=== PATIENT | male | born 1965 | race Caucasian/White ===

== ENCOUNTER 2020-03-28 08:25 | Outpatient (CLI) | payer MEDICARE, OTHER, SELFPAY ==
--- NOTE | 2020-03-28 08:38 | XR_ITS ---
WS: [id number] EXAM: RIGHT HAND: 3 VIEWS DATE OF EXAMINATION: 03/28/2020, 0847 hours COMPARISON: Right wrist examination from 11/02/2018. HISTORY: Patient is 54 years old with hand pain after falling off the lawnmower. FINDINGS: Bone density is normal in appearance. There are minimal changes of arthritis in the wrist. No fractur e or dislocation is seen. No soft tissue abnormality demonstrated. XR/XR hand RT min 3V* [id number] IMPRESSION: No acute bony abnormality.
== END 2020-03-28 08:26 | disposition home or self-care (01) ==
LOC: RAD 08:34
PROVIDERS: PCP Family Medicine; Visit Provider Nurse Practitioner Family
DX: M79.641 Pain in right hand (principal)
CPT/HCPCS: 73130

== ENCOUNTER 2021-03-29 11:17 | Emergency (ER) | payer MEDICARE, SELFPAY ==
[2021-03-29] VITALS (8 sets, daily range): BP systolic 138–168; BP diastolic 90–116; PULSE 78–88; RESP 14–26; TEMP 37.1; O2SAT 96–99; BMI 37.3
--- NOTE | 2021-03-29 12:46 | ECG_ITS ---
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 Measurements Intervals [place] Rate: 84 P: 42 [place]: 167 QRS: 27 QRSD: 106 T: 24 QT: 387 QTc: 459 Interpretive Statements SINUS RHYTHM No previous ECG available for comparison Electronically Signed On 03-29-2021 18:27:56 CDT by Sana Gutierrez M.D. [id number] f
--- NOTE | 2021-03-29 12:47 | W.ED.BACK ---
HPI - Back Pain/Injury General: Chief Complaint: Back Pain/Injury Stated Complaint: HTN: SENT BY PCP Time Seen by Provider: 03/29/21 12:30 Source: patient Mode of arrival: ambulatory Limitations: no limitations History of Present Illness: HPI Narrative: 55-year-old male presents to the ER today after going to his PCP for medication refills and having an elevated blood pressure. Patient reports at the doctor's office it was ~180/115. Patient reports he felt fine and had no other symptoms associated such as a headache or blurry vision. Patient drove himself to the appointment with no problem. Patient reports a long standing history of hypertension which has been difficult to control. He is currently taking lisinopril and metoprolol but has been out of his metoprolol for over a week now. Patient was seeing his primary care today for a refill on the metoprolol. Patient does have chronic back issues and is waiting for a stimulator and takes meloxicam and a muscle relaxer for pain currently. Patient was sent from the primary care office due to the elevated blood pressure and told he was stroke level high. Pertinent past history: prior back pain (Chronic) Associated symptoms: Reports other (Elevated blood pressure); Deny abdominal pain, chills, fever(s), nausea or vomiting Review of Systems Const: Denies: fever(s) or chills Eyes: Denies: change in vision or blurry vision ENMT: Denies: throat pain, nasal discharge or nasal congestion Card: Denies: chest pain, palpitations, edema, dyspnea on exertion or orthopnea Resp: Denies: dyspnea, productive cough, non-productive cough or wheezing GI: Denies: abdominal pain, nausea, vomiting, diarrhea or constipation Musc: Reports: back pain (Chronic and unchanged) Skin/Breast: Denies: rash Neuro: Denies: headache(s) or dizziness Physical Exam Const: COMMON NORMALS: no acute distress, patient oriented x3 and no limitations GENERAL APPEARANCE: cooperative; not in distress NUTRITIONAL APPEARANCE: obese HENMT: COMMON NORMALS: normocephalic HEAD & SCALP: normocephalic Lymph: LYMPHATIC: no lymphadenopathy noted Chest: COMMONS NORMALS: normal inspection of the chest and normal palpation of entire chest wall Resp: COMMON NORMALS: normal respiratory effort, No retractions and clear to auscultation bilaterally AUSCULTATION: clear to auscultation bilaterally, no rales, no rhonchi and no wheezes Cardio: COMMON NORMALS: regular rate, regular rhythm, No murmurs present (Cardio) and Peripheral pulses 2+ throughout RATE: regular rate and not tachycardic RHYTHM: regular rhythm PERIPHERAL PULSES: Peripheral pulses 2+ throughout GI: COMMON NORMALS: Normal to inspection, nondistended, normoactive bowel sounds present, Soft to palpation and non-tender PALPATION: Yes Soft to palpation Back/Pelvis: COMMON NORMALS: thoracic and lumbar spine normal to inspection Extremity: COMMON NORMALS: normal to inspection and full ROM Neuro: COMMON NORMALS: patient oriented x3 Psych: COMMON NORMALS: mental status grossly normal and Normal thought process present THOUGHT PROCESS: Normal thought process present Skin: COMMON NORMALS: no rashes or lesions noted GENERAL SKIN EXAM: no rashes or lesions noted Course ED course: On monitor there is noted to be a possible inverted T wave in lead II. Patient has no chest pain and no other symptoms at this time. We will get an EKG and lab work given this finding. Patient has been out of his blood pressure medication metoprolol for 1 week now. Patient runs on the high side he reports, never getting below 140 systolic. Patient currently only takes lisinopril and metoprolol and denies having tried very many other medications. Denies any kidney problems. Reevaluation(s): Reevaluation #1: Patient resting comfortably in room. Blood pressure most recent reading is 138/90. Patient has no symptoms at this time Time: 13:46 Vital Signs: Vital signs: Vital Signs Temperature 98.7 F 03/29/21 11:59 Pulse Rate 78 03/29/21 13:15 Respiratory Rate 20 H 03/29/21 13:15 Blood Pressure 142/99 03/29/21 13:15 Pulse Oximetry 97 03/29/21 13:15 MDM - Back Pain/Injury MDM Narrative: Medical decision making narrative: Patient presented to the ER for elevated blood pressure while at his PCPs office. Patient had not been taking one of his blood pressure medicines for the last week due to being out of it. Patient had no symptoms upon presentation to the ER or his clinic this morning that are worrisome. Patient's physical exam was unremarkable. We did do an EKG and troponin given on the monitor it appeared there was a possible inverted T waves. EKG did not show 1 however. Patient has no symptoms at this time and is feeling good. We will refill his metoprolol and continue home meds. His last blood pressure in the ER was 138/90 which is where he runs chronically he reports. Patient will follow up with his PCP in 1 to 2 weeks. Return to the ER with any new or worsening symptoms. Lab Data: Attestation: I reviewed the patient's lab results. Lab results narrative: White blood count is low, this was discussed with patient and he will follow-up with his PCP regarding this. All other lab work is good today Labs: Lab Results 03/29/21 03/29/21 03/29/21 Range/Units 12:51 12:51 12:51 WBC 2.9 L (4.0-10.0) 10^3/ uL RBC 5.25 (4.1-5.3) 10^6/u L Hgb 16.0 (11.7-16.6) g/dL Hct 47.0 (42.0-52.0) % MCV 89.5 (80-94) fl MCH 30.5 (28.0-34.0) pg MCHC 34.0 (30.0-36.0) g/dL RDW 13.6 (12.1-15.1) % Plt Count 131 (130-400) 10^3/c mm MPV 10.2 (7.4-10.4) fL Neut % (Auto) 59.3 % Lymph % (Auto) 26.6 % [place] % (Auto) 12.8 % Eos % (Auto) 0.3 % Baso % (Auto) 0.7 % Neut # (Auto) 1.71 L (1.8-7.7) 10^3/u L Lymph # (Auto) 0.8 (0.8-4.8) 10^3/u L [place] # (Auto) 0.4 (0.2-0.9) 10^3/u L Eos # (Auto) 0.0 (0.0-0.8) 10^3/u L Baso # (Auto) 0.0 (0.0-0.1) 10^3/u L Nucleated RBC % (a uto) 0 % Nucleated RBCs # 0.0 /100WBC Sodium 141 (136-145) mmol/L Chloride 104 (98-107) mmol/L Carbon Dioxide 24 (22-29) mmol/L BUN 14 (6-20) mg/dL Creatinine 0.8 (0.7-1.2) mg/dL GFR Calculation 100.4 (90-130) mL/min Glucose 88 (65-115) mg/dL Calculated Osmolal ity 292 (285-295) mOsm/k g Calcium 9.0 (8.5-10.5) mg/dL Total Bilirubin 0.3 (0.15-1.2) mg/dL AST 22 (0-40) U/L ALT 22 (0-41) U/L Alkaline Phosphata se 73 (40-130) IU/L Troponin T Gen 5 n g/L 7 (0-15) ng/L Total Protein 6.7 (6.6-8.7) g/dL Albumin 4.5 (3.5-5.2) g/dL Globulin 2.2 (1.3-4.6) g/dL EKG Data^: EKG 1: EKG interpretation date: 03/29/21 EKG interpretation time: 13:52 Other EKG comments: EKG normal Critical Care Time Critical Care Time: Critical Care Time: No Discharge Plan Discharge Patient Disposition: Home Clinical Impression: Hypertension Qualifiers: Hypertension type: unspecified Qualified Code(s): I10 - Essential (primary) hypertension Chronic back pain Qualifiers: Back pain location: low back pain Back pain laterality: unspecified Sciatica presence: without sciatica Qualified Code(s): M54.5 - Low back pain Condition: Stable Prescriptions: New metoprolol succinate 50 mg tablet extended release 24 hr 50 mg PO DAILY Qty: 30 RF: 0 No Action Zyrtec 10 mg Tablet 10 mg PO DAILY PRN (Reason: Allergy Symptoms) RF: 0 tizanidine 4 mg tablet 4 mg PO BEDTIME RF: 0 metoprolol succinate 50 mg tablet extended release 24 hr 50 mg PO DAILY RF: 0 meloxicam 15 mg tablet 15 mg PO DAILY RF: 0 lisinopril 10 mg tablet 10 mg PO BID RF: 0 Discharge Orders: Discharge ED (Routine); Ordered 03/29/21 Ordered By: Jamila Petersen Referrals: Caryl Balderas NP [Primary Care Provider] - Discharge Diet: Usual diet Discharge Activity: Resume usual activity Patient Instructions: Hypertension (ED), Opioid Safety Activity Restrictions/Additional Instructions: Continue home medications. Metoprolol ER 50 mg was refilled in the ER today. Follow-up with PCP in the next 1 to 2 weeks. Check blood pressure at home occasionally and record. Return to the ER with any new or worsening symptoms. Coding Level of Care Code ED Juvenile Probation Officer for Rosemarie Fwd Exam Comprehensive
[2021-03-29 12:59] LABS: Basophils % 0.7 %; Eosinophils % 0.3 %; Lymphocytes # 0.8 10^3/uL (0.8-4.8); Lymphocytes % 26.6 %; Mean Corpuscular Hemoglobin 30.5 pg (28.0-34.0); Mean Corpuscular Volume 89.5 fl (80-94); Mean Platelet Volume 10.2 fL (7.4-10.4); Monocytes # 0.4 10^3/uL (0.2-0.9); Monocytes % 12.8 %; Neutrophils # 1.71 10^3/uL (1.8-7.7); Neutrophils % 59.3 %; Nucleated Red Blood Cells % 0 %; Platelet Count 131 10^3/cmm (130-400); Red Blood Count 5.25 10^6/uL (4.1-5.3); Red Cell Distribution Width 13.6 % (12.1-15.1); White Blood Count 2.9 10^3/uL (4.0-10.0)
[2021-03-29] MEDS: metoprolol succinate ER (24 HR) 50 mg Tablet PO (13:21)
[2021-03-29 13:27] LABS: Alanine Aminotransferase 22 U/L (0-41); Albumin Level 4.5 g/dL (3.5-5.2); Alkaline Phosphatase 73 IU/L (40-130); Aspartate Amino Transferase 22 U/L (0-40); Blood Urea Nitrogen 14 mg/dL (6-20); Carbon Dioxide 24 mmol/L (22-29); Chloride 104 mmol/L (98-107); Globulin 2.2 g/dL (1.3-4.6); Glomerular Filtration Rate 100.4 mL/min (90-130); Glucose 88 mg/dL (65-115); Osmolality Calculated 292 mOsm/kg (285-295); Sodium 141 mmol/L (136-145); Total Bilirubin 0.3 mg/dL (0.15-1.2); Total Protein 6.7 g/dL (6.6-8.7)
[2021-03-29 13:28] LABS: Troponin T (5th) Once 7 ng/L (0-15)
[2021-03-29 13:48] LABS: Anion Gap 17.1 (5-19); Potassium 4.1 mmol/L (3.5-5.1)
== END 2021-03-29 13:58 | disposition home or self-care (01) ==
PROVIDERS: Emergency Provider Physician Assistant; PCP Nurse Practitioner Family
DX: I10 Essential (primary) hypertension (principal); G89.29 Other chronic pain; M54.5 Low back pain
CPT/HCPCS: 80053; 84484; 85025; 93005; 99284

== ENCOUNTER → 2021-04-03 10:33 | Outpatient (BNVA) | payer MEDICARE, SELFPAY | PROVIDERS: PCP Nurse Practitioner Family; Visit Provider Nurse Practitioner Family | DX: Z20.822 Contact with and (suspected) exposure to COVID-19 (principal) | CPT/HCPCS: 87635 ==

== ENCOUNTER 2021-04-05 09:53 | Outpatient (CLI) | payer MEDICARE, SELFPAY ==
[2021-04-05 10:05] VITALS: BP 171/111; PULSE 64; RESP 18; TEMP 36.6; O2SAT 97; BMI 37.3
[2021-04-05 10:40] VITALS: BP 153/100; PULSE 60; RESP 16; TEMP 36.7; O2SAT 93
[2021-04-05 11:49] VITALS: BP 159/100; PULSE 55; RESP 16; TEMP 36.5; O2SAT 96
--- NOTE | 2021-04-15 17:48 | PC.SOCIAL ---
53-0, 6505 follow up call for antibody infusion. symptoms prior to infusion: tired, headache, no taste patient reports he is still tired but other symptoms have subsided.
== END 2021-04-05 09:54 | disposition home or self-care (01) ==
LOC: OPS 09:56
PROVIDERS: PCP Nurse Practitioner Family; Visit Provider Nurse Practitioner Family
DX: U07.1 COVID-19 (principal)
CPT/HCPCS: 96365

== ENCOUNTER 2022-02-15 11:07 | Emergency (ER) | payer MEDICARE, SELFPAY ==
[2022-02-15 11:15] VITALS: BP 156/105; PULSE 85; RESP 16; TEMP 36.7; O2SAT 97
--- NOTE | 2022-02-15 11:24 | W.ED.CHESTPA ---
HPI - Chest Pain General: Chief Complaint: Chest Pain Stated Complaint: chest pain Time Seen by Provider: 02/15/22 11:24 History of Present Illness: Mr. Romo is a 56-year-old gentleman with significant past history of cardiac arrest who presents to the emergency department due to chest discomfort and dizziness. He reports an episode of dizziness upon standing last night which lasted for approximately 20 minutes. He describes it as a spinning sensation that did not necessarily worsen with movement or any certain factors have resolved spontaneously. This morning he had recurrence of episode while driving. He describes a spinning sensation associated with left anterior chest pressure and diaphoresis. Denies radiation of chest pain. Denies frequent history of similar. He does have a right-sided headache. No other reported neurologic symptoms. Overall course of symptoms has persisted. No other specific changes in health, exacerbating, or alleviating factors identified. Onset (ago): hour(s) Timing of current episode: episodic Prior episodes: No Onset: during rest Pain location: left chest Pain radiation: none Severity: moderate Quality: aching Relieving factors: nothing Exacerbating factors: movement Review of Systems General: Reports: 10 or more systems reviewed and unremarkable except in HPI and below PFSH ED PFSH: Medical History Chronic back pain History of cardiac arrest Hypertension Spinal cord stimulator status Social History Smoking and tobacco status: current every day smoker smokeless tobacco Smokeless tobacco user: chewing tobacco Alcohol intake: current Alcohol intake frequency: holidays/special occasions only Physical Exam Const: COMMON NORMALS: patient oriented x3 and alert GENERAL APPEARANCE: cooperative, well developed and ill appearing (mildly) HENMT: COMMON NORMALS: normocephalic and atraumatic HEAD & SCALP: normocephalic and atraumatic THROAT: posterior oropharynx normal Eye: COMMON NORMALS: conjunctivae normal CONJUNCTIVA: Yes conjunctivae normal SCLERA: sclerae normal Neck/C-Spine: COMMON NORMALS: supple GENERAL: Yes trachea midline Resp: COMMON NORMALS: clear to auscultation bilaterally EFFORT & INSPECTION: Yes able to speak in complete sentences AUSCULTATION: clear to auscultation bilaterally Cardio: COMMON NORMALS: regular rate and regular rhythm RATE: regular rate RHYTHM: regular rhythm GI: COMMON NORMALS: Soft to palpation PALPATION: Yes Soft to palpation and No Tenderness to palpation present (GI) PERCUSSION: normal to percussion Extremity: GENERAL: Yes normal exam except as noted and No edema Neuro: COMMON NORMALS: patient oriented x3, CN's II-XII intact bilaterally, moves all extremities, no focal motor deficits and no sensory deficits noted SENSORIUM/ORIENTATION: Yes alert and No Orientation impaired Psych: COMMON NORMALS: mental status grossly normal and Normal thought process present THOUGHT PROCESS: Normal thought process present Course ED course: - Patient was seen and evaluated by me at bedside - Patient placed on cardiac monitors, IV access obtained - Initial evaluation notable for exam as above. No focal neurodeficits. - Labs and xrays personally interpreted by me. EKG shows sinus rhythm with nonspecific ST segment abnormalities, no STEMI, erroneous electronic interpretation. - Fluids, aspirin, and dizziness treatment given - Labs notable for no significant hematologic or metabolic abnormalities to explain symptoms. Viral studies negative. Delta troponin negative. - Imaging notable for no lobar consolidation or pneumothorax on chest x-ray. CT head without evidence of acute intracranial pathology. CTA negative for LVO or other obvious cause of dizziness. - Upon serial reexamination after treatment the patient was improved with resolution of symptoms - Based on patient history, evaluation, and testing as interpreted the most likely cause of the patient's condition is chest pain in not low risk by heart score patient - The results of ED evaluation were discussed with the patient including possible disposition options. I discussed risk stratification by heart score and estimated risk of major adverse cardiac events. The patient wishes to proceed with outpatient management. I discussed prescriptions and/or symptomatic cares (if applicable) including appropriate and responsible use, followup plan, and return precautions. The patient verbalized understanding and felt safe for discharge. - Patient discharged in satisfactory condition. Note: Click bubbles or prepopulated nugent in note writing are used for assistance with data collection and billing and are inherently more limited than narrative and other text portions of this note. Please use narrative for additional clinical history and defer to narrative/free test for any case of contradictory information. If information appears in only free text or click bubble it should be considered present or absent as reported. Please contact note sign writer hand for clarifications of clinical information or contradictory information. MDM is a brief summary, contradictory or erroneous seeming information should be clarified and full note should be reviewed. Vital Signs: Vital signs: Vital Signs Temperature 98.0 F 02/15/22 11:15 Pulse Rate 68 02/15/22 15:38 Respiratory Rate 14 02/15/22 15:38 Blood Pressure 138/86 02/15/22 15:38 Pulse Oximetry 96 02/15/22 15:38 Oxygen Delivery Me thod 02/15/22 15:38 MDM - Chest Pain Medical Decision Making 56-year-old gentleman presenting with chest pain and dizziness. No clear etiology identified on ED evaluation. Patient proved with treatment. Offered admission for chest pain which the patient inclined in favor of outpatient management. Strict return precautions given. Medical Records I reviewed the patient's medical records. Lab Data I reviewed the patient's lab results. : 02/15/22 11:25 02/15/22 11:25 Radiology Impressions Chest X-Ray 02/15/22 11:30 IMPRESSION: No acute findings. Head CT 02/15/22 11:30 IMPRESSION: No acute intracranial abnormality. Head/Neck CTA 02/15/22 13:21 IMPRESSION: No large vessel stenosis or occlusion. IMPRESSION: No stenosis or occlusion. REFERENCES: NASCET CRITERIA. The degree of internal carotid artery stenosis is based on NASCET criteria. Normal is no stenosis. Mild is less than 50% stenosis. Moderate is 50-69% stenosis. Severe is 70% to 99% stenosis. Total occlusion is no detectable patent lumen. Laboratory Results WBC 6.0 10^3/uL (4.0-10.0) 02/15/22 11:25 RBC 5.24 10^6/uL (4.1-5.3) 02/15/22 11:25 Hgb 16.1 g/dL (11.7-16.6) 02/15/22 11:25 Hct 47.1 % (42.0-52.0) 02/15/22 11:25 MCV 89.9 fl (80-94) 02/15/22 11:25 MCH 30.7 pg (28.0-34.0) 02/15/22 11:25 MCHC 34.2 g/dL (30.0-36.0) 02/15/22 11:25 RDW 13.2 % (12.1-15.1) 02/15/22 11:25 Plt Count 207 10^3/cmm (130-400) 02/15/22 11:25 MPV 9.4 fL (7.4-10.4) 02/15/22 11:25 Neut % (Auto) 62.2 % 02/15/22 11:25 Lymph % (Auto) 26.0 % 02/15/22 11:25 [place] % (Auto) 10.0 % 02/15/22 11:25 Eos % (Auto) 1.0 % 02/15/22 11:25 Baso % (Auto) 0.5 % 02/15/22 11:25 Neut # (Auto) 3.75 10^3/uL (1.8-7.7) 02/15/22 11:25 Lymph # (Auto) 1.6 10^3/uL (0.8-4.8) 02/15/22 11:25 [place] # (Auto) 0.6 10^3/uL (0.2-0.9) 02/15/22 11:25 Eos # (Auto) 0.1 10^3/uL (0.0-0.8) 02/15/22 11:25 Baso # (Auto) 0.0 10^3/uL (0.0-0.1) 02/15/22 11:25 Nucleated RBC % (auto) 0 % 02/15/22 11:25 Nucleated RBCs # 0.0 /100WBC 02/15/22 11:25 Sodium 143 mmol/L (136-145) 02/15/22 11:25 Potassium 4.0 mmol/L (3.5-5.1) 02/15/22 11:25 Chloride 107 mmol/L (98-107) 02/15/22 11:25 Carbon Dioxide 24 mmol/L (22-29) 02/15/22 11:25 Anion Gap 16.0 (5-19) 02/15/22 11:25 BUN 17 mg/dL (6-20) 02/15/22 11:25 Creatinine 0.9 mg/dL (0.7-1.2) 02/15/22 11:25 GFR Calculation 87.3 mL/min (90-130) L 02/15/22 11:25 Glucose 104 mg/dL (65-115) 02/15/22 11:25 Calculated Osmolality 298 mOsm/kg (285-295) H 02/15/22 11:25 Calcium 9.5 mg/dL (8.5-10.5) 02/15/22 11:25 Total Bilirubin 0.4 mg/dL (0.15-1.2) 02/15/22 11:25 AST 17 U/L (0-40) 02/15/22 11:25 ALT 16 U/L (0-41) 02/15/22 11:25 Alkaline Phosphatase 86 IU/L (40-130) 02/15/22 11:25 Troponin T Baseline 9 ng/L (0-15) 02/15/22 11:25 Troponin T 120 Minute 7.43 ng/L (0-15) 02/15/22 13:45 Delta Troponin T -1.57 ABS# (0-10) L 02/15/22 13:45 NT-Pro-B Natriuret Pep 19 pg/mL (0-125) 02/15/22 11:25 Total Protein 7.3 g/dL (6.6-8.7) 02/15/22 11:25 Albumin 4.4 g/dL (3.5-5.2) 02/15/22 11:25 Globulin 2.9 g/dL (1.3-4.6) 02/15/22 11:25 Lipase 24 U/L (13-60) 02/15/22 11:25 TSH 1.12 uIU/mL (0.27-4.20) 02/15/22 11:25 Influenza Type A Ag Negative (Negative) 02/15/22 11:35 Influenza Type B Ag Negative (Negative) 02/15/22 11:35 SARS-CoV-2 Ag (Rapid) Negative (Negative) 02/15/22 11:35 Discharge Plan Discharge Patient Disposition: Home Clinical Impression: Chest pain, Dizziness Condition: Stable Prescriptions: New meclizine 25 mg tablet 25 mg PO TID PRN (Reason: dizziness) Qty: 10 0RF No Action cetirizine [Zyrtec] 10 mg Tablet 10 mg PO DAILY PRN (Reason: Allergy Symptoms) tizanidine 4 mg tablet 4 mg PO BEDTIME lisinopril 10 mg tablet 15 mg PO BID metoprolol succinate 50 mg tablet extended release 24 hr 50 mg PO DAILY Qty: 30 0RF amlodipine 10 mg tablet 10 mg PO DAILY Aleve 220 mg Capsule 440 mg PO DAILY Discharge Orders: Discharge ED (Routine); Ordered 02/15/22 Ordered By: Guillermo Chen Referrals: Caryl Balderas NP [Primary Care Provider] - Discharge Diet: Usual diet Discharge Activity: Increase activity as tolerated Patient Instructions: Chest Pain (ED), Dizziness (ED) Activity Restrictions/Additional Instructions: Thank you for visiting the emergency department. You were seen and evaluated for dizziness and chest pain. The exact cause of your symptoms is unclear. As discussed I do feel that you need additional evaluation given your cardiac history which you are choosing to do in the outpatient setting. I will message case management for follow-up outpatient testing. Please follow-up with your primary care provider. Return to the emergency department for recurrence of symptoms, any new neurologic symptoms, or anything else that you are concerned about and feel needs emergency department evaluation. Coding Level of Care Code ED Fitness Manager for Rosemarie Topete Exam Comprehensive
--- NOTE | 2022-02-15 11:30 | XRR_ITS ---
PROCEDURE INFORMATION: Exam: XR Chest Exam date and time: 02/15/2022 12:03 PM Age: 56 years old Clinical indication: Sternal or substernal pain; Additional info: Cp TECHNIQUE: Imaging protocol: Radiologic exam of the chest. Views: 1 view. COMPARISON: CR Myelogram Cerv/Thor/Lumb [id number] 02/19/2017 9:40 AM FINDINGS: Lungs: Unremarkable. No consolidation. Pleural spaces: Unremarkable. No pleural effusion. No pneumothorax. Heart/Mediastinum: Unremarkable. No cardiomegaly. Bones/joints: Unremarkable. XR/XR chest 1V portable [id number] IMPRESSION: No acute findings.
--- NOTE | 2022-02-15 11:30 | CTR_ITS ---
PROCEDURE INFORMATION: Exam: CT Head Without Contrast Exam date and time: 02/15/2022 12:09 PM Age: 56 years old Clinical indication: Dizziness TECHNIQUE: Imaging protocol: Computed tomography of the head without contrast. Radiation optimization: All CT scans at this facility use at least one of these dose optimization techniques: automated exposure control; mA and/or kV adjustment per patient size (includes targeted exams where dose is matched to clinical indication); or iterative reconstruction. COMPARISON: CT cervical spine w con [id number] 02/19/2017 11:10 AM RADIATION DOSE METRICS: Total DLP (mGy-cm): 1086.08 FINDINGS: Brain: Normal. No hemorrhage. Unremarkable white matter. No mass effect. Cerebral ventricles: No ventriculomegaly. Paranasal sinuses: Visualized sinuses are unremarkable. No fluid levels. Mastoid air cells: Visualized mastoid air cells are well aerated. Bones/joints: Unremarkable. No acute fracture. Soft tissues: Unremarkable. CT/CT head wo con* [id number] IMPRESSION: No acute intracranial abnormality.
--- NOTE | 2022-02-15 11:30 | ECG_ITS ---
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 Measurements Intervals [place] Rate: 79 P: 142 MT: 366 QRS: 27 QRSD: 105 T: 41 QT: 374 QTc: 430 Interpretive Statements Heavy electrical artifacts ABNORMAL RHYTHM ECG Compared to ECG 03/29/2021 12:56:44 Sinus rhythm no longer present Electronically Signed On 02-15-2022 19:09:02 CDT by Kevin Gill M.D. [id number]
[2022-02-15 11:32] VITALS: BP 151/99; PULSE 82; RESP 20; O2SAT 96
[2022-02-15 11:41] LABS: Basophils % 0.5 %; Eosinophils # 0.1 10^3/uL (0.0-0.8); Hematocrit 47.1 % (42.0-52.0); Hemoglobin 16.1 g/dL (11.7-16.6); Lymphocytes # 1.6 10^3/uL (0.8-4.8); Mean Corpuscular HGB Conc 34.2 g/dL (30.0-36.0); Mean Corpuscular Hemoglobin 30.7 pg (28.0-34.0); Mean Corpuscular Volume 89.9 fl (80-94); Mean Platelet Volume 9.4 fL (7.4-10.4); Monocytes # 0.6 10^3/uL (0.2-0.9); Neutrophils # 3.75 10^3/uL (1.8-7.7); Neutrophils % 62.2 %; Nucleated Red Blood Cells % 0 %; Platelet Count 207 10^3/cmm (130-400); Red Blood Count 5.24 10^6/uL (4.1-5.3); Red Cell Distribution Width 13.2 % (12.1-15.1)
[2022-02-15] MEDS: meclizine 25 mg tablet PO (11:56)
[2022-02-15] MEDS: sodium chloride 0.9% 1,000 ML 999 ML IV (11:56)
[2022-02-15] MEDS: aspirin 81 mg Chew Tablet 324 MG PO (11:56)
[2022-02-15 12:02] LABS: Troponin(5th) Baseline 9 ng/L (0-15)
[2022-02-15 12:08] LABS: Alanine Aminotransferase 16 U/L (0-41); Albumin Level 4.4 g/dL (3.5-5.2); Alkaline Phosphatase 86 IU/L (40-130); Aspartate Amino Transferase 17 U/L (0-40); Blood Urea Nitrogen 17 mg/dL (6-20); Calcium 9.5 mg/dL (8.5-10.5); Carbon Dioxide 24 mmol/L (22-29); Chloride 107 mmol/L (98-107); Globulin 2.9 g/dL (1.3-4.6); Glomerular Filtration Rate 87.3 mL/min (90-130); Glucose 104 mg/dL (65-115); Lipase 24 U/L (13-60); NT Pro B Type Natriuretic Pept 19 pg/mL (0-125); Osmolality Calculated 298 mOsm/kg (285-295); Sodium 143 mmol/L (136-145); Thyroid Stimulating Hormone 1.12 uIU/mL (0.27-4.20); Total Bilirubin 0.4 mg/dL (0.15-1.2); Total Protein 7.3 g/dL (6.6-8.7)
[2022-02-15 12:08] LABS: Influenza A by IFA Negative (Negative); Influenza B by IFA Negative (Negative); SARS Covid-2 Antigen Negative (Negative)
--- NOTE | 2022-02-15 13:21 | CTR_ITS ---
PROCEDURE INFORMATION: Exam: CTA Head With Contrast, Arteriography Exam date and time: 02/15/2022 2:41 PM Age: 56 years old Clinical indication: Dizziness and giddiness TECHNIQUE: Imaging protocol: Computed tomographic angiography of the head with contrast. Exam focused on the arteries. 3D rendering (Not supervised by radiologist): MIP and/or 3D reconstructed images were created by the technologist. Radiation optimization: All CT scans at this facility use at least one of these dose optimization techniques: automated exposure control; mA and/or kV adjustment per patient size (includes targeted exams where dose is matched to clinical indication); or iterative reconstruction. Contrast material: OMNI 350; Contrast volume: 95 ml; Contrast route: INTRAVENOUS (IV); COMPARISON: CT head wo con* [id number] 02/15/2022 12:09 PM RADIATION DOSE METRICS: Total DLP (mGy-cm): 506.23 FINDINGS: ANTERIOR CIRCULATION: Right internal carotid artery: Unremarkable. Intracranial segment is patent with no significant stenosis. No aneurysm. Right middle cerebral artery: Unremarkable. No occlusion or significant stenosis. No aneurysm. Right anterior cerebral artery: Unremarkable. No occlusion or significant stenosis. No aneurysm. Left internal carotid artery: Unremarkable. Intracranial segment is patent with no significant stenosis. No aneurysm. Left middle cerebral artery: Unremarkable. No occlusion or significant stenosis. No aneurysm. Left anterior cerebral artery: Unremarkable. No occlusion or significant stenosis. No aneurysm. POSTERIOR CIRCULATION: Right vertebral artery: Unremarkable. No occlusion or significant stenosis. No aneurysm. Left vertebral artery: Unremarkable. No occlusion or significant stenosis. No aneurysm. Basilar artery: Unremarkable. No occlusion or significant stenosis. No aneurysm. Right posterior cerebral artery: Unremarkable. No occlusion or significant stenosis. No aneurysm. Left posterior cerebral artery: Unremarkable. No occlusion or significant stenosis. No aneurysm. Brain: No definite mass, mass effect, or midline shift. Cerebral ventricles: No ventriculomegaly. Bones/joints: Unremarkable. No acute fracture. Soft tissues: Unremarkable. PROCEDURE INFORMATION: Exam: CTA Neck With Contrast Exam date and time: 02/15/2022 2:41 PM Age: 56 years old Clinical indication: Dizziness and giddiness TECHNIQUE: Imaging protocol: Computed tomographic angiography of the neck with contrast. 3D rendering (Not supervised by radiologist): MIP and/or 3D reconstructed images were created by the technologist. Radiation optimization: All CT scans at this facility use at least one of these dose optimization techniques: automated exposure control; mA and/or kV adjustment per patient size (includes targeted exams where dose is matched to clinical indication); or iterative reconstruction. Contrast material: OMNI 350; Contrast volume: 95 ml; Contrast route: INTRAVENOUS (IV); COMPARISON: CT cervical spine w riddhi [id number] 02/19/2017 11:10 AM RADIATION DOSE METRICS: Total DLP (mGy-cm): 506.23 FINDINGS: Right common carotid artery: No stenosis. No dissection or occlusion. Right internal carotid artery: No stenosis of the extracranial segment. No dissection or occlusion. Right external carotid artery: No occlusion or stenosis of the origin. Left common carotid artery: No stenosis. No dissection or occlusion. Left internal carotid artery: No stenosis of the extracranial segment. No dissection or occlusion. Left external carotid artery: No occlusion or stenosis of the origin. Right vertebral artery: No stenosis. No dissection or occlusion. Left vertebral artery: No stenosis. No dissection or occlusion. Soft tissues: Normal. No significant soft tissue swelling. Bones/joints: No acute fracture. CT/CT angio headneck* [id number] IMPRESSION: No large vessel stenosis or occlusion. IMPRESSION: No stenosis or occlusion. REFERENCES: NASCET CRITERIA. The degree of internal carotid artery stenosis is based on NASCET criteria. Normal is no stenosis. Mild is less than 50% stenosis. Moderate is 50-69% stenosis. Severe is 70% to 99% stenosis. Total occlusion is no detectable patent lumen.
[2022-02-15] MEDS: diphenhydrAMINE 50 mg/mL SDV 1mL 25 MG IVP (13:56)
[2022-02-15] MEDS: metoclopramide 5 mg/mL SDV 2 mL 10 MG IVP (13:56)
--- NOTE | 2022-02-15 13:58 | ECG_ITS ---
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 Measurements Intervals [place] Rate: 71 P: 187 [place]: 294 QRS: -1 QRSD: 104 T: 47 QT: 414 QTc: 450 Interpretive Statements Possibly normal sinus Electrical artifact Further interpretation is not possible Electronically Signed On 02-15-2022 19:26:31 CDT by Kevin Gill M.D. [id number]
[2022-02-15 14:01] VITALS: BP 115/80; PULSE 80; RESP 14; O2SAT 96
[2022-02-15 14:25] LABS: Troponin 5 2HR 7.43 ng/L (0-15)
[2022-02-15 14:31] LABS: Troponin 5 2HR Delta -1.57 ABS# (0-10)
[2022-02-15 14:59] VITALS: BP 126/74; PULSE 66; RESP 22; O2SAT 95
[2022-02-15 15:38] VITALS: BP 138/86; PULSE 68; RESP 14; O2SAT 96
[2022-02-15] MEDS: iohexol 350 mg/mL 100 mL Btl IV (18:40)
== END 2022-02-15 15:50 | disposition home or self-care (01) ==
PROVIDERS: Emergency Provider Emergency Medicine; PCP Nurse Practitioner Family
DX: R07.9 Chest pain, unspecified (principal); R42 Dizziness and giddiness; I10 Essential (primary) hypertension; F17.220 Nicotine dependence, chewing tobacco, uncomplicated; Z20.822 Contact with and (suspected) exposure to COVID-19
CPT/HCPCS: 70450; 70496; 70498; 71045; 80053; 83690; 83880; 84443; 84484; 85025; 87426; 87804; 93005; 96374; 96375; 99285; J1200; J2765; J7030; J8597; Q9967

== ENCOUNTER 2022-02-19 10:09 | Outpatient (CLI) | payer MEDICARE, SELFPAY ==
--- NOTE | 2022-02-19 10:22 | XR_ITS ---
WS: [id number] XR knee RT 1-2V [id number] REASON FOR EXAM: PAIN IN R KNEE FINDINGS: The joint spaces intact and relatively well-preserved. Mild subchondral sclerosis in the medial knee joint compartment. Mild subchondral sclerosis with small marginal osteophytosis of the patella. No fracture or other focal bone abnormality. XR/XR knee RT 1-2V [id number] IMPRESSION: No acute abnormality. Mild changes of osteoarthritis.
== END 2022-02-19 10:10 | disposition home or self-care (01) ==
LOC: RAD 10:12
PROVIDERS: PCP Nurse Practitioner Family; Visit Provider Nurse Practitioner Family
DX: M17.11 Unilateral primary osteoarthritis, right knee
CPT/HCPCS: 73560

== ENCOUNTER → 2022-06-03 10:17 | Outpatient (BNVA) | payer MEDICARE, SELFPAY | PROVIDERS: PCP Nurse Practitioner Family; Visit Provider Nurse Practitioner Family | DX: J06.9 Acute upper respiratory infection, unspecified (principal) | CPT/HCPCS: 87400 ==

== ENCOUNTER 2023-01-01 09:55 | Outpatient (CLI) | payer MEDICARE, OTHER, SELFPAY ==
--- NOTE | 2023-01-01 10:05 | XR_ITS ---
WS: [id number] EXAMINATION: XR wrist LT min 3V* [id number] REASON FOR EXAM: PAIN IN LEFT WRIST COMPARISON: None available. ORDER DATE: 01/01/2023 10:08 AM FINDINGS: There is no sign of any acute osseous or articular abnormality. There are no specific soft tissue abn ormalities. XR/XR wrist LT min 3V* [id number] IMPRESSION: No acute change.
== END 2023-01-01 09:56 | disposition home or self-care (01) ==
LOC: RAD 09:58
PROVIDERS: PCP Nurse Practitioner Family; Visit Provider Nurse Practitioner Family
DX: M25.532 Pain in left wrist (principal); M19.90 Unspecified osteoarthritis, unspecified site
CPT/HCPCS: 73110

== ENCOUNTER 2024-07-18 12:26 | Outpatient (RCR) | payer MEDICARE, OTHER, SELFPAY | END 2024-08-12 23:59 | disposition home or self-care (01) | LOC: SPT 12:26 | PROVIDERS: Visit Provider Physician Assistant Surgical | DX: Z47.1 Aftercare following joint replacement surgery (principal); Z96.651 Presence of right artificial knee joint | CPT/HCPCS: 97110; 97161 ==

== ENCOUNTER 2024-10-11 18:30 | Emergency (ER) | payer MEDICARE, OTHER, SELFPAY ==
--- NOTE | 2024-10-11 18:32 | USR_ITS ---
PROCEDURE INFORMATION: Exam: US Duplex Right Lower Extremity Veins, Limited Exam date and time: 10/11/2024 6:57 PM Age: 59 years old Clinical indication: Edema, localized; Lower extremity, left; Prior surgery; Surgery date: 6+ months; Surgery type: Right total knee; Additional info: Leg swelling TECHNIQUE: Imaging protocol: Real-time duplex ultrasound of the right extremity with 2-D purdy scale, color Doppler flow and spectral waveform analysis including responses to compression and other maneuvers (when performed) with image documentation. Limited exam was focused on the right lower extremity veins. COMPARISON: CR XR knee RT 1-2V [id number] 02/19/2022 10:30 AM FINDINGS: Right deep veins: Unremarkable. The common femoral, femoral, proximal profunda femoral and popliteal veins are patent without thrombus. Normal Doppler waveforms. Normal compressibility and/or augmentation response. Superficial veins: Greater saphenous vein at the saphenofemoral junction is patent without thrombus. Soft tissues: Unremarkable. US/[place] [id number] IMPRESSION: No evidence of deep vein thrombosis.
[2024-10-11 18:35] VITALS: BP 170/114; PULSE 74; RESP 16; TEMP 36.8; O2SAT 98; BMI 36.4
--- NOTE | 2024-10-11 19:44 | XRR_ITS ---
PROCEDURE INFORMATION: Exam: XR Right Knee Exam date and time: 10/11/2024 8:17 PM Age: 59 years old Clinical indication: Pain; Knee; Right; Additional info: Knee pain, rle swelling TECHNIQUE: Imaging protocol: Radiologic exam of the right knee. Views: 3 views. COMPARISON: CR XR knee RT 1-2V [id number] 02/19/2022 10:30 AM FINDINGS: Bones/joints: Postoperative changes from right total knee replacement. The surgical hardware is intact without evidence of hardware failure or loosening. Soft tissues: Normal. XR/XR knee RT 3V* [id number] IMPRESSION: No acute abnormality.
--- NOTE | 2024-10-11 20:22 | W.ED.EXTPRO ---
HPI - Extremity Problem General: Chief complaint: Extremity Problem,Nontraumatic Stated complaint: Sent by Urgent Care\Possible BLood Clot Rt Leg Time Seen by Provider: 10/11/24 19:14 Source: patient Mode of arrival: ambulatory Limitations: no limitations History of Present Illness: Patient is a 59-year-old male presents the emergency department referred by urgent care for right knee pain. States that this has been bothering him for couple of days, he had knee surgery late last year. States that his knee has been painful and swelling and this has radiated down to his ankle, states that this has also been swelling. No skin color changes or temperature changes reported. Does not report any specific injury such as trauma or twisting. No history of blood clots he is not on a blood thinner. No reported signs or symptoms of infection. Vitals unremarkable at this time. MD Complaint: joint swelling and joint pain Onset (ago): day(s) Pain Consistency: constant Location: right and lower extremity Associated symptoms: Deny chest pain, fever(s) or rash Context: recent surgery/procedure Related Data Home Medications ?Medication ?Instructions ?Recorded ?Confirmed cetirizine 10 mg tablet (Zyrtec) 10 mg PO DAILY PRN Allergy Symptoms 03/29/21 10/11/24 tizanidine 4 mg tablet 4 mg PO BEDTIME 03/29/21 10/11/24 amlodipine 10 mg tablet 10 mg PO DAILY 02/15/22 10/11/24 meloxicam 15 mg tablet 15 mg PO DAILY 06/03/22 10/11/24 fluticasone propionate 50 intranasal 10/11/24 10/11/24 mcg/actuation nasal spray,suspension lisinopril 20 mg tablet mg PO 10/11/24 10/11/24 potassium citrate 99 mg capsule mg PO 10/11/24 10/11/24 rosuvastatin 5 mg tablet mg PO 10/11/24 10/11/24 Previous Rx's ?Medication ?Instructions ?Recorded metoprolol succinate 50 mg 50 mg PO DAILY #30 tabs 03/29/21 tablet,extended release 24 hr Allergies Allergy/AdvReac Type Severity Reaction Status Date / Time No Known Allergies Allergy Verified 10/11/24 18:07 Review of Systems General: Reports: 10 or more systems reviewed and unremarkable except in HPI and below Const: Denies: fever(s) or chills Card: Denies: chest pain Resp: Denies: dyspnea or productive cough GI: Denies: abdominal pain, nausea, vomiting or diarrhea : Denies: flank pain Musc: Reports: extremity pain, extremity swelling, joint pain and joint swelling; Denies: neck pain, back pain, joint redness, joint warmth, limited range of motion or muscle weakness Skin/Breast: Denies: rash Neuro: Denies: headache(s), numbness in extremities or weakness in extremities PFSH ED PFSH: Medical History Spinal cord stimulator status History of cardiac arrest Chronic back pain Hypertension Social History Smoking and tobacco/nicotine status: never used tobacco/nicotine Alcohol intake: current Alcohol intake frequency: holidays/special occasions only Physical Exam Const: COMMON NORMALS: no acute distress, patient oriented x3, no limitations, healthy appearing, alert and well nourished HENMT: COMMON NORMALS: normocephalic and atraumatic HEAD & SCALP: normocephalic and atraumatic Neck/C-Spine: COMMON NORMALS: full ROM, supple and no meningeal signs Resp: COMMON NORMALS: normal respiratory effort, No use of accessory muscles and clear to auscultation bilaterally AUSCULTATION: clear to auscultation bilaterally Cardio: COMMON NORMALS: regular rate and regular rhythm RATE: regular rate RHYTHM: regular rhythm Extremity: COMMON NORMALS: full ROM, capillary refill normal and no clubbing, cyanosis or edema NARRATIVE EXTREMITY EXAM: Postoperative scar anterior right knee. No swelling, diffuse tender to palpation. No palpable cord, mild tenderness to popliteal space. Mild reproducible calf tenderness with no overlying skin color changes or temperature changes. No signs of infection. Positive Homans' sign. Neuro: COMMON NORMALS: patient oriented x3, moves all extremities, no focal motor deficits and no sensory deficits noted SENSORIUM/ORIENTATION: Yes alert MENINGEAL SIGNS: Yes no meningeal signs Skin: COMMON NORMALS: no rashes or lesions noted GENERAL SKIN EXAM: no rashes or lesions noted Course Vital Signs: Vital signs: Vital Signs Temperature 98.2 F 10/11/24 18:35 Pulse Rate 74 10/11/24 18:35 Respiratory Rate 16 10/11/24 18:35 Blood Pressure 170/114 10/11/24 18:35 Pulse Oximetry 98 10/11/24 18:35 Oxygen Delivery Me thod Room Air 10/11/24 18:35 MDM - Extremity (Nontraumatic) Medical Decision Making Patient referred by urgent care for evaluation of his right knee pain and swelling. On exam minimal to no swelling was noted, tender to palpation of the ankle and knee but there is no signs of trauma. Neurovascular exam was intact, pulses were palpable and no there was a positive Homans' sign and pain at the popliteal space, his ultrasound was negative for DVT. In addition his x-ray is normal and showed normal prosthesis alignment. No signs of infection as well. I do not suspect any emergent process and he will be discharged in stable position with encouraged him to follow-up with orthopedics where he had his surgery. Also informed him to start elevating and icing as needed and continuing his ibuprofen and Tylenol. Verbalized understanding to return precautions. Lab Data Radiology Impressions Venous Duplex 10/11/24 18:32 IMPRESSION: No evidence of deep vein thrombosis. Knee X-Ray 10/11/24 19:44 IMPRESSION: No acute abnormality. All radiology interpretation(s) finalized by discharge Discharge Plan Discharge Patient Disposition: Home Clinical Impression: Knee pain, right Qualifiers: Chronicity: chronic Qualified Code(s): M25.561 - Pain in right knee Condition: Stable Prescriptions: No Action meloxicam 15 mg tablet 15 mg PO DAILY fluticasone propionate 50 mcg/actuation spray,suspension intranasal lisinopril 20 mg tablet PO rosuvastatin 5 mg tablet PO potassium citrate 99 mg capsule PO cetirizine [Zyrtec] 10 mg Tablet 10 mg PO DAILY PRN (Reason: Allergy Symptoms) tizanidine 4 mg tablet 4 mg PO BEDTIME metoprolol succinate 50 mg tablet extended release 24 hr 50 mg PO DAILY Qty: 30 0RF amlodipine 10 mg tablet 10 mg PO DAILY Discharge Orders: Discharge ED (Routine); Ordered 10/11/24 Ordered By: Chung Stern Referrals: Nila Garcia NP [Primary Care Provider] - Patient Instructions: Knee Pain (ED) Activity Restrictions/Additional Instructions: Rest, ice, compression, and elevation. Continue taking your meloxicam and Tylenol at home. Please follow-up with orthopedics as we discussed. Return with any new or worsening. Print Language: Spanish Coding Level of Care Code ED Beta Tester for Rosemarie Topete
[2024-10-11 20:39] VITALS: BP 154/105; PULSE 70; RESP 16; O2SAT 99
[2024-10-11 21:30] VITALS: BP 136/95; PULSE 65; O2SAT 95
== END 2024-10-11 21:30 | disposition home or self-care (01) ==
PROVIDERS: Emergency Provider Physician Assistant; PCP Nurse Practitioner Family
DX: M25.561 Pain in right knee (principal); I10 Essential (primary) hypertension; R60.0 Localized edema
CPT/HCPCS: 73562; 93971; 99284

== ENCOUNTER 2025-02-22 14:59 | Emergency (ER) | payer MEDICARE, OTHER, SELFPAY ==
[2025-02-22 15:05] VITALS: BP 167/104; PULSE 83; TEMP 36.8; O2SAT 98; BMI 36.2
--- NOTE | 2025-02-22 17:03 | CTR_ITS ---
PROCEDURE INFORMATION: Exam: CT Head Without Contrast Exam date and time: 02/22/2025 5:34 PM Age: 59 years old Clinical indication: Pain; Headache; Migraine TECHNIQUE: Imaging protocol: Computed tomography of the head without contrast. Radiation optimization: All CT scans at this facility use at least one of these dose optimization techniques: automated exposure control; mA and/or kV adjustment per patient size (includes targeted exams where dose is matched to clinical indication); or iterative reconstruction. COMPARISON: CT angio headneck* [id number] 02/15/2022 2:41 PM RADIATION DOSE METRICS: Total DLP (mGy-cm): 1086.68 FINDINGS: Brain: Normal. No hemorrhage. Unremarkable white matter. No mass effect. Cerebral ventricles: No ventriculomegaly. Paranasal sinuses: Visualized sinuses are unremarkable. No fluid levels. Mastoid air cells: Visualized mastoid air cells are well aerated. Bones: Unremarkable. No acute fracture. Soft tissues: Unremarkable. CT/CT head wo con* [id number] IMPRESSION: No acute intracranial abnormality.
--- NOTE | 2025-02-22 17:22 | W.ED.HA ---
HPI - Headache General: Chief Complaint: Headache Stated Complaint: r side jehovah's witness muscle spam sore spot headache Time Seen by Provider: 02/22/25 16:47 History of Present Illness: Chief complaint is headache. The patient states that when he woke up this morning he had a little twitching sensation in the right scalp. He states it was not a headache. It was not any pain. He states he gets some muscle twitches in his back fairly frequently and so he knows what it feels like. He states other than that he felt fine today. He states he had gone to the grocery store and he was walking into the house carrying a light load of groceries he states it was very light and he was not exerting himself. He has not done any heavy lifting. He states this was at 2:00 this afternoon. He states that he noticed that he developed a sharp pain that is very focal on his right scalp. He indicates about 2 inches into his hairline over the right parietal area. No change in vision. No nausea or vomiting. No fall or trauma. No fever. No numbness weakness or tingling in his arms or legs. He states his was worried about him so they came here Related Data Home Medications ?Medication ?Instructions ?Recorded ?Confirmed cetirizine 10 mg tablet (Zyrtec) 10 mg PO DAILY PRN Allergy Symptoms 03/29/21 10/11/24 tizanidine 4 mg tablet 4 mg PO BEDTIME 03/29/21 10/11/24 amlodipine 10 mg tablet 10 mg PO DAILY 02/15/22 10/11/24 meloxicam 15 mg tablet 15 mg PO DAILY 06/03/22 10/11/24 fluticasone propionate 50 intranasal 10/11/24 10/11/24 mcg/actuation nasal spray,suspension lisinopril 20 mg tablet mg PO 10/11/24 10/11/24 potassium citrate 99 mg capsule mg PO 10/11/24 10/11/24 rosuvastatin 5 mg tablet mg PO 10/11/24 10/11/24 Previous Rx's ?Medication ?Instructions ?Recorded metoprolol succinate 50 mg 50 mg PO DAILY #30 tabs 03/29/21 tablet,extended release 24 hr Allergies Allergy/AdvReac Type Severity Reaction Status Date / Time No Known Allergies Allergy Verified 02/22/25 15:10 [facility] ED PFSH: Medical History (Updated 02/22/25 @ 18:20 by Florin Alaniz MD) Spinal cord stimulator status History of cardiac arrest Chronic back pain Hypertension Social History Smoking and tobacco/nicotine status: never used tobacco/nicotine Alcohol intake: current Alcohol intake frequency: holidays/special occasions only Physical Exam Narrative: EXAM NARRATIVE: Patient is alert oriented talkative no acute distress. No facial swelling. Temporal artery soft pliable and nontender. He has some mild tenderness over his scalp above that area but no erythema. Full range ocular motion. Grossly intact visual nugent. Pupils briskly reactive. Normal conjunctiva. No facial swelling or tenderness. Moist mucous membranes. Clear nares. No rash over the scalp. Neck is supple. He moves his neck freely. Tracks me around the room. His heart regular rhythm lung sounds are clear abdomen soft nontender and extremities are warm well-perfused. No calf tenderness or pitting edema. No rash in exposed areas. Speech is clear. No drift in his arms or legs. Intact cerebellar function. No truncal ataxia. Course Vital Signs: Vital signs: Vital Signs Temperature 98.2 F 02/22/25 15:05 Pulse Rate 78 02/22/25 18:29 Blood Pressure 141/92 02/22/25 18:29 Pulse Oximetry 97 02/22/25 18:29 Oxygen Delivery Me thod Room Air 02/22/25 15:05 MDM - Headache Medical Decision Making Patient presents to the emergency department with complaint of a sharp pain on his right scalp. He denies any trauma or injury. He was not exerting himself when it started. It started at 2:00 this afternoon. He denies any history of aneurysm himself or family history of aneurysm. He has no known cancer. He denies any trauma or injury. Denies any change in vision or numbness weakness or tingling in his arms or legs. No vomiting. He states he has not taken any pain medicine or anything for it. I discussed giving him some 4 and he was equivocal. He agreed to taking Tylenol 650 mg p.o., Which I ordered. Temporal arteritis, sentinel leak, migraine, extremely broad differential. I ordered sed rate CRP CBC CMP and CT of the head. No findings on exam or history to suggest stroke. No meningeal signs. Trigeminal neuralgia, among many others considered in the differential. I advised patient and regarding broad differential and limits of ED evaluation. Will get labs CT and reassess. He denies any pain in his eyes or pain with movement of his eyes or change in vision to suggest ocular cause. CT head negative for acute process per radiology. CBC CMP sed rate and CRP do not show evidence of acute process. Patient sitting up watching TV alert and talkative in no acute distress. I advised limits of ED evaluation outpatient follow-up and return instructions. Will have him follow-up to monitor his blood pressure with his doctor. Advised broad differential and signs symptoms of worsening to watch and return for. Shingles, temporal arteritis, among many others in differential and advise close return and follow-up instructions. Advised immediate return for any involvement of his eye among other return instructions. Lab Data 02/22/25 17:27 02/22/25 17:[address] 02/22/25 17:03 IMPRESSION: No acute intracranial abnormality. Laboratory Results WBC 5.33 10^3/uL (3.29-11.43) 02/22/25 17: RBC 5.23 10^6/uL (3.85-5.65) 02/22/25 17: Hgb 15.50 g/dL (11.27-16.99) 02/22/25 17: Hct 45.1 % (37-53) 02/22/25 17: MCV 86.2 fl (82-101) 02/22/25 17: MCH 29.6 pg (27-33) 02/22/25 17: MCHC 34.4 g/dL (30-55) 02/22/25 17: RDW 13.3 % (12.1-15.1) 02/22/25 17: Plt Count 193 10^3/cmm (157-399) 02/22/25 17: MPV 9.1 fL (7.4-10.4) 02/22/25 17: Neut % (Auto) 66.3 % 02/22/25 17: Lymph % (Auto) 23.5 % 02/22/25 17: [place] % (Auto) 8.3 % 02/22/25 17: Eos % (Auto) 1.1 % 02/22/25 17: Baso % (Auto) 0.6 % 02/22/25 17: Neut # (Auto) 3.54 10^3/uL (1.8-7.7) 02/22/25 17: Lymph # (Auto) 1.3 10^3/uL (0.8-4.8) 02/22/25 17: [place] # (Auto) 0.4 10^3/uL (0.2-0.9) 02/22/25 17: Eos # (Auto) 0.1 10^3/uL (0.0-0.8) 02/22/25 17: Baso # (Auto) 0.0 10^3/uL (0.0-0.1) 02/22/25: Nucleated RBC % (auto) 0 % 02/22/25: Nucleated RBCs # 0.0 /100WBC 02/22/25: ESR 2 mm/hr (0-10) 02/22/25 17: Sodium 139 mmol/L (136-145) 02/22/25 17: Potassium 4.1 mmol/L (3.5-5.1) 02/22/25 17: Chloride 105 mmol/L (98-107) 02/22/25: Carbon Dioxide 23 mmol/L (22-29) 02/22/25 17: Anion Gap 15.1 (5-19) 02/22/25 17: BUN 17 mg/dL (6-20) 02/22/25 17: Creatinine 0.9 mg/dL (0.7-1.2) 02/22/25 17: GFR Calculation 86.4 mL/min (90-130) L 02/22/25 17: Glucose 89 mg/dL (65-115) 02/22/25 17: Calculated Osmolality 289 mOsm/kg (285-295) 02/22/25: Calcium 8.9 mg/dL (8.5-10.5) 02/22/25 17: Total Bilirubin 0.3 mg/dL (0.15-1.2) 02/22/25 17: AST 15 U/L (0-40) 02/22/25 17: ALT 20 U/L (0-41) 02/22/25 17:27 Alkaline Phosphatase 66 U/L (40-130) 02/22/25 17:27 C-Reactive Protein 3.0 mg/L (0.0-4.9) 02/22/25 17:27 Total Protein 6.9 g/dL (6.6-8.7) 02/22/25 17:27 Albumin 4.3 g/dL (3.5-5.2) 02/22/25 17:27 Globulin 2.6 g/dL (1.3-4.6) 02/22/25 17:27 All radiology interpretation(s) finalized by discharge Discharge Plan Discharge Patient Disposition: Home Clinical Impression: Acute headache Condition: Stable Prescriptions: No Action meloxicam 15 mg tablet 15 mg PO DAILY fluticasone propionate 50 mcg/actuation spray,suspension intranasal lisinopril 20 mg tablet PO rosuvastatin 5 mg tablet PO potassium citrate 99 mg capsule PO cetirizine [Zyrtec] 10 mg Tablet 10 mg PO DAILY PRN (Reason: Allergy Symptoms) tizanidine 4 mg tablet 4 mg PO BEDTIME metoprolol succinate 50 mg tablet extended release 24 hr 50 mg PO DAILY Qty: 30 0RF amlodipine 10 mg tablet 10 mg PO DAILY Discharge Orders: Discharge ED (Routine); Ordered 02/22/25 Ordered By: Florin Alaniz Referrals: Nila Garcia NP [Primary Care Provider, Unknown] Patient Instructions: Opioid Safety, Pain Management, Patient Portal & [facility]aja Instructions Activity Restrictions/Additional Instructions: Follow-up with your doctor this week. Come back if fever, vomiting, change in vision, eye pain, worsening headache, weakness or numbness in your arms or legs or face, confusion, rash, getting worse instead of better, any concerns. Please follow-up on your test results with your doctor. Print Language: Kiswahili Coding Level of Care Code ED Finisher Map And Chart for Rosemarie Topete
[2025-02-22 17:45] LABS: Hematocrit 45.1 % (37-53); Hemoglobin 15.50 g/dL (11.27-16.99); Mean Corpuscular HGB Conc 34.4 g/dL (30-55); Mean Corpuscular Hemoglobin 29.6 pg (27-33); Mean Corpuscular Volume 86.2 fl (82-101); Nucleated Red Blood Cells % 0 %; Platelet Count 193 10^3/cmm (157-399); Red Blood Count 5.23 10^6/uL (3.85-5.65); White Blood Count 5.33 10^3/uL (3.29-11.43)
[2025-02-22 17:55] LABS: Alanine Aminotransferase 20 U/L (0-41); Albumin Level 4.3 g/dL (3.5-5.2); Alkaline Phosphatase 66 U/L (40-130); Anion Gap 15.1 (5-19); Aspartate Amino Transferase 15 U/L (0-40); Blood Urea Nitrogen 17 mg/dL (6-20); Calcium 8.9 mg/dL (8.5-10.5); Carbon Dioxide 23 mmol/L (22-29); Chloride 105 mmol/L (98-107); Creatinine Clr Calc Pharmacy 115.4420; Globulin 2.6 g/dL (1.3-4.6); Glucose 89 mg/dL (65-115); Osmolality Calculated 289 mOsm/kg (285-295); Potassium 4.1 mmol/L (3.5-5.1); Sodium 139 mmol/L (136-145); Total Protein 6.9 g/dL (6.6-8.7)
[2025-02-22 18:29] VITALS: BP 141/92; PULSE 78; O2SAT 97
--- OUTSIDE RECORDS SUMMARY | 2025-02-22 22:38 | XMS_ITS | Patient Health Record ---
Author Organization [facility] Address [address] [place] [address] Support Name Relationship Address , Angie Romo Emergency Contact Unknown Unavailable Silvio Romo Guarantor Unknown [phone] Care Team Providers Care Business Analytics Specialist Name Role Phone Jose BEARDN Nila Primary Care Provider Echo Talamantes Unavailable [phone] ELMO COPELAND Unavailable Unavailable Migration, Provider Unavailable Unavailable Samuel Smith Unavailable [phone] Allergies No Known Allergies Results Component Value Reference Range Notes Fluoro Needle For Placement - Spine 27559 Reviewed date:08/16/2024 08:14:57 AM Interpretation: Performing Lab: Notes/Report: Reason For Referral No Information Medications Medication SIG (Take, Route, Frequency, Duration) Notes Start Date End Date Status Metoprolol Succinate *Pick strength-form from [facility] for eRX* Not-Taking Lisinopril 10 MG Tablet 1 1/2 tablet Orally Twice daily; Duration: 90 days Dose increase Active Lisinopril *Pick strength-form from [facility] for eRX* Not-Taking Fexofenadine HCl 180 MG Tablet 1 tablet Orally Once a day; Duration: 90 days 01/03/2020 Not-Taking Aspirin 81 MG Tablet Delayed Release 1 tablet Orally Once a day; Duration: 30 day(s) Active amLODIPine Besylate 10 MG Tablet 1 tablet Orally once daily in evening for blood pressure; Duration: 90 days Dose increase Active Amlodipine *Reorder from [facility] for eRx and Interaction Alerts* Not-Taking Meloxicam 15 MG Tablet 1 tablet Orally Once a day; Duration: 90 days Fill 30 days from last RX refill 09/07/2024 07/30/2025 Active Cetirizine HCl Activ e Flonase Active tiZANidine HCl 4 MG Tablet 1 tablet Orally Three times a day; Duration: 90 days As needed Fill from previous Rx 12/07/2024 03/07/2025 Active Rosuvastatin Calcium 40 MG Tablet TAKE 1 TABLET BY MOUTH EVERY NIGHT AT BEDTIME; Duration: 90 Active Metoprolol Succinate ER 50 MG Tablet Extended Release 24 Hour 1 tablet Orally Once a day; Duration: 90 days Not-Taking Immunizations Vaccine Route Administration Date Status Comme eunice Martino Quadrivalent Influenza Vaccine 3 years+ IM Intramuscular 04/27/2020 Pending Flucelvax IM Intramuscular 05/06/2021 Administered Influenza, seasonal, injectable (split), for 3 yrs and up Unknown 04/26/2019 Administered Social History Tobacco Use: Social History Observation Description Date Details (start date - stop date) Never Smoker NA - NA Social History Depression Screening Social Info Question Answer Notes PHQ-9 Little interest or pleasure in doing thin gs Not at all Feeling down, depressed, or hopeless Not at all Trouble falling or staying asleep, or sleeping t oo much Not at all Feeling tired or having little energy Not at all Poor appetite or overeating Not at all Feeling bad about yourself, or that you are a failure, or have let yourself or your family down Not at all Trouble concentrating on thi ngs, such as reading the newspaper or watching television Not at all Moving or speaking so slowly that other people could have noticed. Or the opposite ? being so fidgety or restless that you have been moving around a lot more than usual Not at all Thoughts that you would be b matthieu off , or of hurting yourself in some way Not at all Total Score 0 Drugs/Alcohol: Social Info Question Answer Notes Alcohol Screen (Audit-C) Did you have a drink containing alcohol in the past year? Yes How often did you have a drink containing alcohol in the past year? Monthly or less (1 point) How many drinks did you have on a typical day when you were drinking in the past year? 1 or 2 drinks (0 point) How often did you have 6 or more drinks on one occasion in the past year? Never (0 point) Points 1 Interpretation Negative Drugs Have you used drugs other than those for medical reasons in the past 12 months? No Tobacco Use: Social Info Question Answer Notes xTobacco Use/Smoking Are you a nonsmoker Additional Findings: Tobacco User Chews loose le af tobacco Tobacco use other than smoking: Are you an other tobacco user? 1 can will last 4-5 days Additional Details Category Social Info Options Details Drugs/Alcohol: Do you smoke marijuana? De nies Migrated Social History Migrated Social History Alcoholic beverages? - Yes, Currently on disability? - Yes, Drug or substance abuse? - No, Marital Status - , Nonprescription drug use? - No, Smoking - No, Smoking status (MU) - Never smoker, Working currently? - No Problems Problem Type SNOMED Code ICD Code Onset Dates Problem Status W/U Status Risk Notes Problem Lesion of ulnar nerv e (026927877) Lesion of ulnar nerve, unspecified upper limb (G56.20) 2023 Active confirmed Problem Chronic pain (21327643) Other chronic pain (G89.29) Active confirmed Problem Chronic pain syndrom e (713743938) Chronic pain syndrome (G89.4) Active confirmed Problem Allergic rhinitis caused by pollen (disorder) (97037578) Allergic rhinitis due to pollen (J30.1) Active confirmed Problem Osteoarthritis (907781172) Polyosteoarthritis, unspecified (M15.9) 2023 Active confirmed Problem Solitary sacroiliiti s (380698544) Sacroiliitis, not elsewhere classified (M46.1) 2023 Active confirmed Problem Lumbosacral spondylosis without myelopathy (disorder) (11339298) Spondylosis without myelopathy or radiculopathy, lumbosacral region (M47.817) 2023 Active confirmed Problem Degeneration of cervical intervertebral disc (51314588) Other cervical disc degeneration, unspecified cervical region (M50.30) 2023 Active confirmed Problem Thoracic radiculopathy (19423700) Intervertebral disc disorders with radiculopathy, thoracic region (M51.14) 2023 Active confirmed Problem Degeneration of thoracic intervertebral disc (04590653) Other intervertebral disc degeneration, thoracic region (M51.34) 2023 Active confirmed Problem Degeneration of lumbosacral intervertebral disc (75049420) Other intervertebral disc degeneration, lumbosacral region (M51.37) 2023 Active confirmed Problem Thoracic radiculopathy (20281545) Radiculopathy, thoracic region (M54.14) 2023 Active confirmed Problem Lumbosacral radiculopathy (2106951) Radiculopathy, lumbosacral region (M54.17) 2023 Active confirmed Problem Sciatica (29691569) Lumbago with sciatica, right side (M54.41) Active confirmed Problem Post-laminectomy syndrome (82640901) Postlaminectomy syndrome, not elsewhere classified (M96.1) 2023 Active confirmed Problem Other incomplete lesion at T2-T6 level of thoracic spinal cord, initial encounter (S24.152A) 2023 Active confirmed Problem Neurostimulator device in situ (finding) (407463807) Presence of neurostimulator (Z96.82) Active confirmed Problem Thoracic radiculopathy (73110093) Thoracic radiculopathy (M54.14) Active confirmed Problem Cervical disc disorder (322078028) DDD (degenerative disc disease), cervical (M50.30) Active confirmed Problem Hypercholesterolemia (29169072) Hypercholesterolemia (E78.00) Active confirmed Problem Sacroiliitis (09896915) Sacroiliitis (M46.1) Active confirmed Problem Post-laminectomy syndrome (79006618) 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) Active confirmed Problem Hypertension (31967413) Hypertension (I10) Active confirmed Problem Lumbosacral spondylosis without myelopathy (38449179) Osteoarthritis of spine with radiculopathy, lumbosacral region (M47.27) Active confirmed Problem Post-laminectomy syndrome (68485483) Postlaminectomy syndrome of lumbar region (M96.1) Active confirmed Problem Generalized osteoarthritis (464574484) Generalized osteoarthritis of multiple sites (M15.9) Active confirmed Problem Degeneration of thoracic intervertebral disc (96187842) DDD (degenerative disc disease), thoracic (M51.34) Active confirmed Problem Lumbosacral radiculopathy (2818964) L-S radiculopathy (M54.17) Active confirmed Problem Lesion of ulnar nerv e (119074203) Ulnar nerve entrapment, unspecified laterality (G56.20) Active confirmed Problem Obstructive sleep apnea syndrome (45545608) Obstructive sleep apnea (adult) (pediatric) (327.23) 2017 Active confirmed [id number]- Problem Cervical spinal stenosis (73513966) Cervical spinal stenosis (723.0) 2016 Active confirmed [id number]- Problem Essential hypertension (26037577) Essential hypertension (401.1) 2016 Active confirmed [id number]- Problem Sleep apnea (38550841) Sleep apnea (780.57) 2017 Problem resolved confirmed [id number]- Problem Low back pain (838946493) Low back pain (724.2) 2018 Problem resolved confirmed [id number]- Problem Allergic rhinitis caused by pollen (45873698) Allergies (477.0) 2018 Problem resolved confirmed [id number]- Problem 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) Other abnormal findings on blood examination (790.99) 2016 Problem resolved confirmed [id number]- Problem Impaired fasting glycaemia (191453588) Elevated fasting glucose (790.21) 2016 Problem resolved confirmed [id number]- Problem Foot pain (63997957) Foot pain (729.5) 2017 Problem resolved confirmed [id number]- Problem Influenza immunization (62991313) Influenza immunization (V04.81) 2018 Problem resolved confirmed [id number]- Problem Insomnia (187874197) Insomnia (307.41) 2016 Problem resolved confirmed [id number]- Problem Spinal stenosis of lumbar region (01143936) Spinal stenosis, lumbar region, without neurogenic claudication (724.02) 2018 Problem resolved confirmed [id number]- Problem Viral warts (49141532) Common warts (078.19) 2017 Problem resolved confirmed [id number]- Problem Skin nodule (97568022) Skin nodule (782.2) 2018 Problem resolved confirmed [id number]- Problem Needs influenza immunization (248902966) Vaccination against other viral diseases, Influenza (V04.81) 2017 Problem resolved confirmed [id number]- Problem Common wart (63497762) Common wart (078.19) 2017 Problem resolved confirmed [id number]- Problem Chronic low back jerry n (011234114) Chronic low back pain (724.2) 2017 Problem resolved confirmed [id number]- Problem Knee pain (2789527405) Knee pain (719.46) 2017 Problem resolved confirmed [id number]- Problem Cervical spondylosis (539585307) Cervical spondylosis (721.0) 2016 Problem resolved confirmed [id number]- Problem Pneumococcal pneumonia (611803969) Acute lobar pneumonia (481) 2017 Problem resolved confirmed [id number]- Problem 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 Problem resolved confirmed [id number]- Problem Vitamin D deficiency (44244510) Vitamin D deficiency, unspecified (268.9) 2017 Problem resolved confirmed [id number]- Problem Degenerative disc disease (77243423) Degenerative disc disease (722.6) 2017 Problem resolved confirmed [id number]- Problem 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) Unspecified skin lesion (239.2) 2018 Problem resolved confirmed [id number]- Problem Pseudoarthrosis (168497935) Pseudoarthrosis (733.82) 2018 Problem resolved confirmed [facility]-98 [id number]- Vital Signs Height-cm 182.88 cm 12/07/2024 Weight-kg 121.56 kg 12/07/2024 Height 72.00 in 12/07/2024 Weight 268 lbs 12/07/2024 BMI 36.34 kg/m2 12/07/2024 Procedures Procedure Date Ordered Date Performed Result Body Sit e Epidural, Lumbar/Sacral (Cau kina), w/ imaging guidance - 39040 08/16/2024 08/16/2024 N/A Epidural, Lumbar/Sacral (Cau kina), w/ imaging guidance - 01924 11/22/2024 11/22/2024 N/A Neurotomy Lumbar/Sacral, 2 o r more levels - 82850, 12863 01/10/2025 01/10/2025 N/A Neurotomy Lumbar/Sacral, 2 o r more levels - 51264, 07957 01/24/2025 01/24/2025 N/A Encounters Encounter Location Date Provider Diagnosis [facility] [place] [address] [place] [address] 02/23/2024 Echo Borjas [facility] [place] [address] [place] [address] 02/23/2024 Echo Smith [facility] [place] [address] [place] [place] [address] 04/20/2024 Samuel Smith [facility] [place] [address] [place] [facility] [place] [address] 06/01/2024 Samuel Smith Chronic pain syndrom e G89.4 ; DDD (degenerative disc disease), cervical M50.30 ; DDD (degenerative disc disease), thoracic M51.34 ; Thoracic radiculopathy M54.14 ; Osteoarthritis of spine with radiculopathy, lumbosacral region M47.27 ; Degeneration of intervertebral disc of lumbosacral region with discogenic back pain and lower extremity pain M51.372 ; L-S radiculopathy M54.17 ; Sacroiliitis M46.1 ; Failed back syndrome of lumbar spine M96.1 ; Generalized osteoarthritis of multiple sites M15.9 ; Neuralgia M79.2 ; Presence of neurostimulator Z96.82 and Admission for long-term opiate use Z79.891 [facility] [place] [address] [place] [address] 07/20/2024 Samuel Smith Chronic pain syndrom e G89.4 ; Lesion of ulnar nerve, unspecified upper limb G56.20 ; DDD (degenerative disc disease), cervical M50.30 ; DDD (degenerative disc disease), thoracic M51.34 ; Thoracic radiculopathy M54.14 ; Degeneration of intervertebral disc of lumbosacral region with discogenic back pain and lower extremity pain M51.372 ; Osteoarthritis of spine with radiculopathy, lumbosacral region M47.27 ; Sacroiliitis M46.1 ; Failed back syndrome of lumbar spine M96.1 ; Generalized osteoarthritis of multiple sites M15.9 ; Neuralgia M79.2 ; Presence of neurostimulator Z96.82 and Admission for long-term opiate use Z79.891 [facility] [address] [place] [address] 08/16/2024 Samuel Smith Radiculopathy, lumbosacral region M54.17 [facility] [place] [address] [place] [address] 09/07/2024 Samuel Smith Chronic pain syndrom e G89.4 ; Lesion of ulnar nerve, unspecified upper limb G56.20 ; DDD (degenerative disc disease), cervical M50.30 ; DDD (degenerative disc disease), thoracic M51.34 ; Thoracic radiculopathy M54.14 ; Degeneration of intervertebral disc of lumbosacral region with discogenic back pain and lower extremity pain M51.372 ; Osteoarthritis of spine with radiculopathy, lumbosacral region M47.27 ; Sacroiliitis M46.1 ; Failed back syndrome of lumbar spine M96.1 ; Generalized osteoarthritis of multiple sites M15.9 ; Neuralgia M79.2 ; Presence of neurostimulator Z96.82 and Admission for long-term opiate use Z79.891 [facility] [place] [address] [place] [address] 11/02/2024 Samuel Smith Chronic pain syndrom e G89.4 ; Lesion of ulnar nerve, unspecified upper limb G56.20 ; DDD (degenerative disc disease), cervical M50.30 ; DDD (degenerative disc disease), thoracic M51.34 ; Thoracic radiculopathy M54.14 ; Degeneration of intervertebral disc of lumbosacral region with discogenic back pain and lower extremity pain M51.372 ; Osteoarthritis of spine with radiculopathy, lumbosacral region M47.27 ; Sacroiliitis M46.1 ; Failed back syndrome of lumbar spine M96.1 ; Generalized osteoarthritis of multiple sites M15.9 ; Neuralgia M79.2 ; Presence of neurostimulator Z96.82 and Admission for long-term opiate use Z79.891 [facility] [address] [place] [address] 11/22/2024 Samuel Smith Radiculopathy, lumbosacral region M54.17 [facility] [address] [place] [address] 12/07/2024 Echo Borjas Chronic pain syndrom e G89.4 ; Thoracic radiculopathy M54.14 ; Osteoarthritis of spine with radiculopathy, lumbosacral region M47.27 ; Sacroiliitis M46.1 ; Failed back syndrome of lumbar spine M96.1 ; Neuralgia M79.2 ; Primary generalized (osteo)arthritis M15.0 ; Presence of neurostimulator Z96.82 and Admission for long-term opiate use Z79.891 [facility] [address] [place] [address] 01/10/2025 Samuel Smith Spondylosis without myelopathy or radiculopathy, lumbosacral region M47.817 [facility] [address] [place] [address] 01/24/2025 Samuel Smith Spondylosis without myelopathy or radiculopathy, lumbosacral region M47.817 Migrated_Facility 0 0 05/07/2024 Provider Migration Migrated[facility]Facility 0 0 05/08/2024 Provider Migration [facility] [place] [address] [place] [address] 09/02/2024 Samuel Smith Assessments Encounter Date Diagnosis (ICD Code) Assessment Notes Treatment Notes Treatment Clinical Notes Section Notes 06/01/2024 Chronic pain syndrome (ICD-10 - G89.4) I had a nice visit with the patient today regarding his chronic pain issues. Overall, he seems to be doing pretty well. He has a knee replacement scheduled for June 28 and has been managing on his meloxicam and tizanidine. He says the spinal cord stimulator is still working well for him. We will see him back in 3 months and continue his medications until then. 07/20/2024 Chronic pain syndrome (ICD-10 - G89.4) I had a nice visit with the patient today regarding his chronic pain issues. He had his knee replacement and it sounds like he's doing pretty well with that. He is still doing physical therapy but ever since his surgery he has had right sided lumbar radiculopathy. It's been about a year since we did his last epidural and he does typically respond pretty well to these. With this in mind, we will get him scheduled for a repeat injection and we also did a reprogramming of his spinal cord stimulator. We will follow up with him after the procedure and proceed accordingly. Schedule repeat [facility] RECOMMEND THERAPEUTIC LUMBAR EPIDURAL STEROID INJECTION, levels Right L5-S1 The patient reports overall 50% improvement in function and decrease in pain for greater than one month from previous diagnostic BRANDON. The patient also reports improvement in tolerance to activities which generally cause pain. Based on the results of previous diagnostic BRANDON, a therapeutic BRANDON is recommended. Expectation from a successful therapeutic epidural steroid injection is at least 50-70% relief of pain from baseline and evidence of improved function for at least six to eight weeks after delivery. The goal of epidural steroid injections is to reduce pain and inflammation, restoring range of motion and, thereby, facilitating progress in more active treatment programs, and avoiding surgery. The procedure and risks were discussed with the patient including but not limited to infection, bleeding, neurological complications, side effects from medications, no change in pain, worsening of pain, or even . We also discussed conservative options, surgical options, and medical management with patient as well. The patient indicates understanding and wishes to proceed with the recommended treatment approach. The patient was given written information about the procedure and all questions were answered. 07/20/2024 Lesion of ulnar nerve, unspecified upper limb (ICD-10 - G56.20) 08/16/2024 Radiculopathy, lumbosacral region (ICD-10 - M54.17) 09/07/2024 Chronic pain syndrome (ICD-10 - G89.4) I had a nice visit with the patient today regarding his chronic pain issues. He had an issue with his spinal cord stimulator where it apparently and he ended up having to get a magnet shipped to him. It sounds like this was a bit of an ordeal, but he finally got it taken care of. Certainly this is not what I expect from the company, so hopefully they do better in the future. We will keep an eye on it and if something needs to be addressed in the future, we will do so. For now we will continue his medications unchanged and see him back in a couple of months. He did have some relief with the most recent injection. 11/02/2024 Chronic pain syndrome (ICD-10 - G89.4) I had a nice visit with the patient today regarding his chronic pain issues. He feels like the pain is returning in a radicular distribution in the right lower extremity so he is interested in repeating a lumbar epidural steroid injection. He thinks he'll probably be ready to do the rhizotomies again as well come December and January as well. We need to get him setup for a reprogramming but the reps are not available today so we will plan to just have them take care of organizing that. We will continue his medications unchanged and see him back in a couple of months. Schedule repeat [facility]ESI 11/22/2024 Radiculopathy, lumbosacral region (ICD-10 - M54.17) 12/07/2024 Chronic pain syndrome (ICD-10 - G89.4) The patient continues with chronic pain requiring treatment to help restore function and improve quality of life. Risks of opioid therapy as well as interaction of opioids with alcohol, illicit drugs, muscle relaxers, and other sedative medications are reviewed briefly with patient again today. The patient has trialed all other reasonable treatment options and uses the medication to alleviate pain in order to remain active and rest with less pain. No clinically relevant medication side effects are noted. Last UDS and [place] BLADDER BLOWER reviewed today. Patient is advised that best long-term goals include increased activity, core strengthening, proper weight management, coping strategies, avoidance of painful triggers, and targeted interventional therapy. We will see the patient for routine follow up in accordance with all clinic policies. We did remind patient today of current guidelines to decrease opioid when possible. We will continue to stress nonopioid treatment. RECOMMEND REPEAT FACET MEDIAL BRANCH RHIZOTOMY, AT L3-5 LEVELS Repeat facet medial branch nerve rhizotomies are being recommended. The patient has pain of well-documented facet joint origin as evidenced by successful response to previous medial branch rhizotomies at L3-5 levels on 01/05/2024 (LT) and 01/19/2024 (RT) with 60% relief for 6 months or greater as criterion standard. Patient experienced 50% or greater improvement in ability to perform previously painful movement without deterioration of the relief, as mentioned in previous records, compared to a baseline functional disability of 50% prior to rhizotomies. We will now proceed with facet rhizotomy using continuous radiofrequency denervation at a temperature of 90 degrees Celsius for 60 seconds. We also understand that we will either do these bilaterally or two weeks apart if doing different sides. The procedure and risks were discussed with the patient including but not limited to infection, bleeding, neurological complications, side effects from medications, no change in pain, worsening of pain, or even . We also discussed conservative options, surgical options, and medical management with patient as well. The patient indicates understanding and wishes to proceed with the recommended treatment approach. The patient was given written information about the procedure and all questions were answered. 12/07/2024 Thoracic radiculopathy (ICD-10 - M54.14) 06/01/2024 DDD (degenerative disc disease), cervical (ICD-10 - M50.30) 01/10/2025 Spondylosis without myelopathy or radiculopathy, lumbosacral region (ICD-10 - M47.817) 01/24/2025 Spondylosis without myelopathy or radiculopathy, lumbosacral region (ICD-10 - M47.817) 12/07/2024 Osteoarthritis of spine with radiculopathy, lumbosacral region (ICD-10 - M47.27) 11/02/2024 Lesion of ulnar nerve, unspecified upper limb (ICD-10 - G56.20) 09/07/2024 Lesion of ulnar nerve, unspecified upper limb (ICD-10 - G56.20) 07/20/2024 DDD (degenerative disc disease), cervical (ICD-10 - M50.30) 06/01/2024 DDD (degenerative disc disease), thoracic (ICD-10 - M51.34) 06/01/2024 Thoracic radiculopathy (ICD-10 - M54.14) 07/20/2024 DDD (degenerative disc disease), thoracic (ICD-10 - M51.34) 09/07/2024 DDD (degenerative disc disease), cervical (ICD-10 - M50.30) 11/02/2024 DDD (degenerative disc disease), cervical (ICD-10 - M50.30) 12/07/2024 Sacroiliitis (ICD-10 - M46.1) 12/07/2024 Failed back syndrome of lumbar spine (ICD-10 - M96.1) 11/02/2024 DDD (degenerative disc disease), thoracic (ICD-10 - M51.34) 09/07/2024 DDD (degenerative disc disease), thoracic (ICD-10 - M51.34) 07/20/2024 Thoracic radiculopathy (ICD-10 - M54.14) 06/01/2024 Osteoarthritis of spine with radiculopathy, lumbosacral region (ICD-10 - M47.27) 06/01/2024 Degeneration of intervertebral disc of lumbosacral region with discogenic back pain and lower extremity pain (ICD-10 - M51.372) 09/07/2024 Thoracic radiculopathy (ICD-10 - M54.14) 11/02/2024 Thoracic radiculopathy (ICD-10 - M54.14) 12/07/2024 Neuralgia (ICD-10 - M79.2) 07/20/2024 Degeneration of intervertebral disc of lumbosacral region with discogenic back pain and lower extremity pain (ICD-10 - M51.372) 12/07/2024 Primary generalized (osteo)arthritis (ICD-10 - M15.0) 11/02/2024 Degeneration of intervertebral disc of lumbosacral region with discogenic back pain and lower extremity pain (ICD-10 - M51.372) 09/07/2024 Degeneration of intervertebral disc of lumbosacral region with discogenic back pain and lower extremity pain (ICD-10 - M51.372) 06/01/2024 L-S radiculopathy (ICD-10 - M54.17) 07/20/2024 Osteoarthritis of spine with radiculopathy, lumbosacral region (ICD-10 - M47.27) 06/01/2024 Sacroiliitis (ICD-10 - M46.1) 09/07/2024 Osteoarthritis of spine with radiculopathy, lumbosacral region (ICD-10 - M47.27) 11/02/2024 Osteoarthritis of spine with radiculopathy, lumbosacral region (ICD-10 - M47.27) RECOMMEND THERAPEUTIC LUMBAR EPIDURAL STEROID INJECTION, levels L5-S1 Right The patient reports overall 50% improvement in function and decrease in pain for greater than one month from previous diagnostic BRANDON. The patient also reports improvement in tolerance to activities which generally cause pain. Based on the results of previous diagnostic BRANDON, a therapeutic BRANDON is recommended. Expectation from a successful therapeutic epidural steroid injection is at least 50-70% relief of pain from baseline and evidence of improved function for at least six to eight weeks after delivery. The goal of epidural steroid injections is to reduce pain and inflammation, restoring range of motion and, thereby, facilitating progress in more active treatment programs, and avoiding surgery. The procedure and risks were discussed with the patient including but not limited to infection, bleeding, neurological complications, side effects from medications, no change in pain, worsening of pain, or even . We also discussed conservative options, surgical options, and medical management with patient as well. The patient indicates understanding and wishes to proceed with the recommended treatment approach. The patient was given written information about the procedure and all questions were answered. 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) 07/20/2024 Generalized osteoarthritis of multiple sites (ICD-10 - M15.9) 06/01/2024 Generalized osteoarthritis of multiple sites (ICD-10 - M15.9) 07/20/2024 Neuralgia (ICD-10 - M79.2) 11/02/2024 Generalized osteoarthritis of multiple sites (ICD-10 - M15.9) 09/07/2024 Generalized osteoarthritis of multiple sites (ICD-10 - M15.9) 06/01/2024 Neuralgia (ICD-10 - M79.2) 09/07/2024 Neuralgia (ICD-10 - M79.2) 11/02/2024 Neuralgia (ICD-10 - M79.2) 07/20/2024 Presence of neurostimulator (ICD-10 - Z96.82) 06/01/2024 Presence of neurostimulator (ICD-10 - Z96.82) 07/20/2024 Admission for long-term opiate use (ICD-10 - Z79.891) 06/01/2024 Admission for long-term opiate use (ICD-10 - Z79.891) 11/02/2024 Presence of neurostimulator (ICD-10 - Z96.82) 09/07/2024 Presence of neurostimulator (ICD-10 - Z96.82) 09/07/2024 Admission for long-term opiate use (ICD-10 - Z79.891) 11/02/2024 Admission for long-term opiate use (ICD-10 - Z79.891) 06/01/2024 Other Rao Baker am scribing for Samuel Smith. Samuel Baker, personally performed the services described in this documentation , as scribed by Rao Hopper, and it is both accurate and complete. 07/20/2024 Other Rao Baker am scribing for Samuel Smith. Samuel Baker, personally performed the services described in this documentation , as scribed by Rao Hopper, and it is both accurate and complete. 09/07/2024 Other Rao Baker am scribing for Dr. Samuel Smith. I, Dr. Samuel Smith, personally performed the services described in this documentation, as scribed by aRo Hopper, and it is both accurate and complete. 11/02/2024 Other Rao Baker am scribing for Dr. Samuel Smith. Olivia, Dr. Samuel Smith, personally performed the services described in this documentation, as scribed by Rao Hopper, and it is both accurate and complete. Plan Of Treatment Next Appt Details Provider Name:Sol sharma, 03/02/2025 11:00:00 AM, [address] [place], [address], Insurance Providers Payer Name Payer Address Payer Phone Subscriber Number Group Number Insured Name Patient Relationship to Insured Coverage Start Date Coverage End Date [place] [address] [address] [place] [address] [phone] [id number] RomoSilvio jasmine Self - patient is the insured [employer] Medicare Supplement [address] [place] [phone] [id number] RomoSilvio Self - patient is the insured Medical (General) History Medical History History ICD Code Cervical spinal stenosis C4-C7 d/t osteo phytes Degenerative Disc Disease Elevated fasting glucose Essential hypertension Spinal stenosis, lumbar region, without neurogenic claudication Sleep Apnea; (+) noncompliant with CPAP 09/20/2019 Osteoarthritis Compression Fx T3, T4, T8, T9 Seizure Disorder [place] Palsy Seasonal Allergies Right 3rd finger locking Surgical History Surgery Date(Month/Year) Ulnar relocation 11/2016 Back Surgery 07/2016 Cervical fusion Lumbar stimulator 06/2021 Back surgery Trigger Finger Repair Hospitalization History Reason Date(Month/Year) Back surgery 07/2016
--- OUTSIDE RECORDS SUMMARY | 2025-02-22 22:38 | XMS_ITS | Clinical Summary ---
Author Organization [facility] Address [address] [place] [address] Care Team Providers Care Supervisor Livestock Yard Name Role Phone Non-Staff, Physician Primary Care Provider Unava ilable Allergies No known active allergies Medications loratadine (CLARITIN) 10 mg tablet Take 10 mg by mouth daily. Active traMADol (ULTRAM) 50 mg tablet Take 50 mg by mouth every 6 hours as needed for Pain. Active GABAPENTIN ORAL Take by mouth. Active cetirizine (ZyrTEC) 10 mg tablet Take 10 mg by mouth daily. Active diclofenac-miSOP ROStol (ARTHROTEC) 75-200 mg-mcg Tab,IR & Delay Rel,Multiphasic Take 1 Tablet by mouth 2 times daily after meals. Active Active Problems Problem Noted Date Diagnosed Date Lumbar radiculopathy 06/10/2016 Tobacco use 05/07/2016 Social History Tobacco Use Types Packs/Day Years Used Date Smoking Tobacco: Never Smokeless Tobacco: Current Alcohol Use Standard Drinks/Week Comments Yes 0 (1 standard drink = 0.6 oz pur e alcohol) occasionally Sex and Gender Information Value Date Recorded Sex Assigned at Not on file Legal Sex Male 10:51 AM CDT Gender Identity Not on file Sexual Orientation Not on file Last Filed Vital Signs Vital Sign Reading Time Taken Comments Blood Pressure 127/85 06/04/2016 8:38 AM [employer] Pulse 95 05/29/2016 3:59 PM [employer] Temperature - - Respiratory Rate 18 05/29/2016 3:21 PM [employer] Oxygen Saturation 96% 05/29/2016 3:59 PM [employer] Inhaled Oxygen Concentration - - Weight 112.9 kg (249 lb) 06/04/2016 8:38 AM [employer] Height 180.3 cm (5' 11 ) 06/04/2016 8:38 AM [employer] Body Mass Index 34.73 06/04/2016 8:38 AM [employer] Plan of Treatment Health Maintenance Due Date Last Done Comments DTAP/TDAP/TD VACCINES (1 - Tdap) 1984 HEPATITIS B VACCINES (1 of 3 - 19+ 3-dose series) 07/14 COLORECTAL SCREENING 2010 Colorectal Cancer Screening 2010 FIT-DNA Q 3 years 2010 FIT/FOBT Q 1 year 2010 Flex Sig/CT Colonography Q 5 years 2010 ZOSTER VACCINE (1 of 2) 2015 INFLUENZA VACCINE (#1) 2025 Insurance BCBS Care Teams Supervisor Livestock Yard Relationship Specialty Start Date End Date Non-Staff, Physician NO ADDRESS ON FILE PCP - General 05/22/16
--- OUTSIDE RECORDS SUMMARY | 2025-02-22 22:38 | XMS_ITS | Clinical Summary ---
Author Organization [facility] Address [address] [facility] Attn: Epic Prelude ADT [place] [address] Care Team Providers Care Technical Director Name Role Phone Non-Staff, Physician Primary Care Provider Unava ilable Allergies No known active allergies Medications cetirizine (ZyrTEC) 10 mg tablet Take 10 mg by mouth daily. 06/04/2016 Active diclofenac-miSOP ROStol (ARTHROTEC) 75-200 mg-mcg Tab,IR & Delay Rel,Multiphasic Take 1 Tablet by mouth 2 times daily after meals. 06/04/2016 Active loratadine (CLARITIN) 10 mg tablet Take 10 mg by mouth daily. 05/07/2016 Active GABAPENTIN ORAL Take by mouth. 05/07/2016 Active traMADoL (ULTRAM) 50 mg tablet Take 50 mg by mouth every 6 hours as needed for Pain. 05/07/2016 Active Active Problems Problem Noted Date Diagnosed Date Lumbar radiculopathy 06/10/2016 Tobacco use 05/07/2016 Encounters Date Type Department Care Team Description 12/19/2024 Orders Only [facility] Admitting [address] [place] [id number] Nila Garcia FNP Unspecified visual disturbance (Primary Dx); Hypertension, essential; Hyperlipidemia, unspecified hyperlipidemia type from Last 3 Months Social History Tobacco Use Types Packs/Day Years Used Date Smoking Tobacco: Never Smokeless Tobacco: Current Alcohol Use Standard Drinks/Week Comments Yes 0 (1 standard drink = 0.6 oz pur e alcohol) Sex and Gender Information Value Date Recorded Sex Assigned at Not on file Legal Sex Male 1:35 PM DIRECTOR OF PARTNERSHIPS Gender Identity Not on file Sexual Orientation Not on file Last Filed Vital Signs Vital Sign Reading Time Taken Comments Blood Pressure 127/85 06/04/2016 8:38 AM [employer]OR OF PARTNERSHIPS Pulse 95 05/29/2016 3:59 PM [employer]NER[employer] Temperature - - Respiratory Rate 18 05/29/2016 3:21 PM [employer]NERSHIPS Oxygen Saturation - - Inhaled Oxygen Concentration - - Weight 112.9 kg (249 lb) 06/04/2016 8:38 AM [employer] OF [employer]NERSHIPS Height 180.3 cm (5' 11 ) 06/04/2016 8:38 AM [employer]NERSHIPS Body Mass Index 34.73 06/04/2016 8:38 AM [employer]OR OF PARTNERSHIPS Plan of Treatment Health Maintenance Due Date Last Done Comments DTAP/TDAP/TD VACCINES (1 - Tdap) 1984 HEPATITIS B VACCINES (1 of 3 - 19+ 3-dose series) 07/14 COLORECTAL SCREENING 2010 Colorectal Cancer Screening 2010 FIT-DNA Q 3 years 2010 FIT/FOBT Q 1 year 2010 Flex Sig/CT Colonography Q 5 years 2010 ZOSTER VACCINE (1 of 2) 2015 INFLUENZA VACCINE (#1) 2025 Insurance MEDICARE PART A AND B [facility] [place] [id number] Care Teams Technical Director Relationship Specialty Start Date End Date Non-Staff, Physician NO ADDRESS ON FILE PCP - General 05/22/16
--- OUTSIDE RECORDS SUMMARY | 2025-02-22 22:38 | XMS_ITS | Patient Health Record ---
Author Organization [facility] Address [address] [place], [place] [address] Care Team Providers Care Car Salter Name Role Phone Ramses Moss DO Primary Care Provider James MC, Baltazar Carbajal [phone] Reason For Referral No Information Medications Medication SIG (Take, Route, Fr equency, Duration) Notes Start Date End Date Status [place] 325 mg-10 mg 1/2 - 1 tab po orall y BID prn pain (hold within 4H of planned sleep) Active lisinopril 10 mg 1 tab orally once a day with HTZ 12.5 mg Active Tylenol 325 mg orally as needed / directed Active ibuprofen 800 mg 1 tab orally as needed Active diclofenac sodium 75 mg 1 tab po orally BID; take with food Active gabapentin 300 mg 2 caps orally 3 times a day Active Social History Tobacco Use: Social History Observation Description Date Details (start date - stop date) Never Smoker NA - NA Tobacco use: Question Answer Notes Additional Findings: Tobacco User Chews tobacco 1/4 can per day : nonsmoker Problems Problem Type SNOMED Code ICD Code Onset Dates Problem Status W/U Status Risk Notes Problem Solitary sacroiliitis (428297942) Sacroiliitis, not elsewhere classified (M46.1) Active confirmed Problem Low back pain (395108680) Low back pain (M54.5) Active confirmed Problem Lumbosacral spondylosis without myelopathy (69029247) Spondylosis without myelopathy or radiculopathy, lumbar region (M47.816) Active confirmed Problem High risk drug monitoring status (912321117) [facility] (current) use of opiate analgesic (Z79.891) Active confirmed Problem Anxiety disorder (874654728) Other specified anxiety disorders (F41.8) Active confirmed Problem Sleep disorder (03571205) Other sleep disorders (G47.8) Active confirmed Problem Acquired spondylolisthesis (161729177) Spondylolysis, lumbosacral region (M43.07) Active confirmed Problem Acquired spondylolisthesis (609484080) Spondylolisthesis , lumbar region (M43.16) Active confirmed Problem Cervical spondylosis without myelopathy (393014126) Spondylosis without myelopathy or radiculopathy, cervical region (M47.812) Active confirmed Problem Cervical radiculopathy (37982866) Cervical disc disorder with radiculopathy, unspecified cervical region (M50.10) Active confirmed Problem Radiculopathy due to lumbar intervertebral disc disorder (988984702620606) Intervertebral disc disorders with radiculopathy, lumbar region (M51.16) Active confirmed Problem Cervicalgia (97695547) Cervicalgia (M54.2) Active confirmed Problem Long-term current use of drug therapy (478972564) Other long-term (current) drug therapy (Z79.899) Active confirmed Plan Of Treatment No Information Insurance Providers Payer Name Payer Address Payer Phone Subscriber Number Group Number Insured Name Patient Relationship to Insured Coverage Start Date Coverage End Date BC [address] [place] [phone] [id number] Silvio Romo Self - patient is the insured Medical (General) History Medical History History ICD Code Seizure disorder Back pain Radiculopathy Joint pain Hypertension Basal cell cancer (face) Seasonal allergies Cervical nerve root impingement Neuropathy, ulnar Tremors, left hand Neck pain Low back pain Lumbar radiculopathy Spondylolisthesis, aquired Paresthesia, left arm Sciatica Surgical History Surgery Date(Month/Year) Left ulnar nerve surgery - Dr. Osorio 11/11 017 L5-S1 PLIF - Dr. Ramirez 08/12/16 Ulnar nerve surgery, left - Dr. Osorio 04/2017 Hospitalization History Reason Date(Month/Year) Grand mal seizure 1999
== END 2025-02-22 18:30 | disposition home or self-care (01) ==
PROVIDERS: Emergency Provider Emergency Medicine; PCP Nurse Practitioner Family
DX: R51.9 Headache, unspecified (principal); I10 Essential (primary) hypertension
CPT/HCPCS: 36415; 70450; 80053; 85025; 85651; 86140; 99284; J9999